=== PATIENT | male | born 2005 | race Caucasian/White ===

== ENCOUNTER 2025-06-02 18:56 | Emergency (ER) | payer OTHER, SELFPAY ==
[2025-06-02 19:54] VITALS: BP 121/64; PULSE 75; RESP 18; TEMP 36.8; O2SAT 99; BMI 25.1
== END 2025-06-02 21:05 | disposition home or self-care (01) ==
LOC: ED 20:57
DX: Z53.21 Procedure and treatment not carried out due to patient leaving prior to being seen by health care provider (principal)

== ENCOUNTER 2025-06-08 23:01 | Outpatient (CLI) | payer OTHER, SELFPAY | END 2025-06-08 23:02 | disposition home or self-care (01) | LOC: AMB 07-03 00:30 | PROVIDERS: Visit Provider Emergency Medicine Emergency Medical Services | DX: S09.90XA Unspecified injury of head, initial encounter (principal); R51.9 Headache, unspecified; W01.0XXA Fall on same level from slipping, tripping and stumbling without subsequent striking against object, initial encounter; Y92.480 Sidewalk as the place of occurrence of the external cause | CPT/HCPCS: A0425; A0429 ==

== ENCOUNTER 2025-06-08 23:20 | Emergency (ER) | payer OTHER, SELFPAY ==
--- NOTE | 2025-06-08 23:28 | CRLHL7_ITS ---
For Patients: As a result of the Century Cures Act, medical imaging exams and procedure reports are released immediately into your electronic medical record. You may view this report before your referring provider. If you have questions, please contact your health care provider. INDICATION: Neck pain. Trauma. TECHNIQUE: Non-contrast axial CT of the cervical spine with coronal and sagittal reconstructions. No comparisons. FINDINGS: The overall stature and alignment of the cervical spine is within normal limits. Prevertebral soft tissues, cervical airway, dens and lateral masses are within normal limits. No evidence of bony fragments narrowing the central canal or visualized neural foramina. IMPRESSION: No radiographic evidence of acute osseous injury. Please note that all CT scans at this facility use dose modulation, iterative reconstruction, and/or weight-based dosing when appropriate to reduce radiation dose to as low as reasonably achievable. Dictated by Dustin Dwyer MD @ 06/08/2025 11:53:27 PM (Electronically Signed)
--- NOTE | 2025-06-08 23:28 | CRLHL7_ITS ---
For Patients: As a result of the Century Cures Act, medical imaging exams and procedure reports are released immediately into your electronic medical record. You may view this report before your referring provider. If you have questions, please contact your health care provider. INDICATION: Headache. Trauma. TECHNIQUE: Non-contrast CT of the head is submitted. No comparisons. FINDINGS: The ventricles, sulci and gyri are of normal size, shape and contour. Midline structures are centrally located. No convincing evidence of intra- or extra-axial fluid collections. IMPRESSION: 1. No radiographic evidence of acute intracranial abnormalities. Please note that all CT scans at this facility use dose modulation, iterative reconstruction, and/or weight-based dosing when appropriate to reduce radiation dose to as low as reasonably achievable. Dictated by Dustin Dwyer MD @ 06/08/2025 11:52:15 PM (Electronically Signed)
--- NOTE | 2025-06-08 23:29 | ED.HEATRA ---
HPI - Head Injury General Chief complaint: Head Injury/Pain Stated complaint: loss of consciousness/head trauma Time Seen by Provider: 06/08/25 23:27 History of Present Illness HPI Narrative: This 20-year-old male comes in by ambulance because of a head and neck injury. I did receive the ambulance report upon arrival. A trauma team activation was initiated because of loss of consciousness. The patient arrives in a cervical collar and is showing no sign of neurologic deficit. He does report a headache at 05/15 and also indicates some neck pain with movement. He does report loss of consciousness as a result of this fall but was able to get up and ambulate normally afterwards. He reports that he was running up a hill and as he stepped onto occurred be fell backwards and hit the back of his head. He does not report any other injury. He is otherwise in good health. Related Data Home Medications ?Medication ?Instructions ?Recorded ?Confirmed No Known Home Medications 06/02/25 06/02/25 Allergies Allergy/AdvReac Type Severity Reaction Status Date / Time No Known Drug Allergies Allergy Verified 06/02/25 19:57 Review of Systems Status of ROS: Reports: 10 or more systems reviewed and unremarkable except as noted in History and below Narrative: Constitutional: No fevers, no weight gain or loss. Eyes: No discharge. No vision changes. HENT: No congestion, no sore throat, no ear pain. Cardiovascular: No chest pain, no palpitations. Respiratory: No shortness of breath, no wheezes, no cough. Gastrointestinal: No abdominal pain, no vomiting, no diarrhea. Genitourinary: No dysuria, no hematuria. Musculoskeletal: Normal range of motion. Skin: No rashes, no pruritis. Neurological: No dizziness, weakness, sensory change, speech change. Endo/Heme/Allergies: No bruising or bleeding. No polydipsia. Pysch: no suicidality, no anxiety, no insomnia. All other systems reviewed and are negative. PFSH PFSH Social History Smoking Status: Never smoker Do you use any of these nicotine containing products: Vaping Products Second hand tobacco smoke exposure: No How often do you have a drink containing alcohol: never AUDIT-C Alcohol total score: 0 Non-prescribed substance use: denies use Exam Narrative: Exam Narrative: Primary Survey: Vital Signs are within normal limits. Airway: Open. Breathing: Easy. Circulation: no obvious bleeding; normal capillary refill. Disability: GCS is 15. Normal pupillary response and motor movements. Secondary Survey: Head: Normocephalic Neck: No midline tenderness When palpating along the spine of the neck. Cervical collar is in place. Chest: Non tender. No external signs of trauma. Abdomen: Non tender. No rebound tenderness. Normal bowel sounds. Pelvis/Genitals: No tenderness to A/P and lateral stress. No blood at the urethral meatus. Extremities: Atraumatic. Back: No midline tenderness. No sign of injury. Primary and Secondary surveys are completed. The patient's GCS is 15. [A decision to transfer this patient was made at ] Const: Vital Signs, click to edit/add: Vital Signs - 24 hr 06/08/25 23:30 Temperature 98.0 F Pulse Rate [Right Pulse Oximeter] 91 Respiratory Rate 18 Blood Pressure [Ri ght Upper Arm] 142/81 H Pulse Oximetry 99 Oxygen Delivery Me thod Room Air Course Vital Signs Vital signs: Initial Vital Signs Temperature 98.0 F 06/08/25 23:30 Temperature Source Temporal Artery Scan 06/08/25 23:30 Pulse Rate 91 06/08/25 23:30 Respiratory Rate 18 06/08/25 23:30 Blood Pressure 142/81 H 06/08/25 23:30 Blood Pressure Mean 101 06/08/25 23:30 Blood Pressure Position Supine 06/08/25 23:30 Pulse Oximetry 99 06/08/25 23:30 Oxygen Delivery Method Room Air 06/08/25 23:30 Vital Signs Temperature 98.0 F 06/08/25 23:30 Pulse Rate 91 06/08/25 23:30 Respiratory Rate 18 06/08/25 23:30 Blood Pressure 142/81 H 06/08/25 23:30 Pulse Oximetry 99 06/08/25 23:30 Oxygen Delivery Method Room Air 06/08/25 23:30 Temperature 98.0 F 06/08/25 23:30 Pulse Rate 91 06/08/25 23:30 Respiratory Rate 18 06/08/25 23:30 Blood Pressure 142/81 H 06/08/25 23:30 Pulse Oximetry 99 06/08/25 23:30 Oxygen Delivery Method Room Air 06/08/25 23:30 MDM - Head Injury MDM Narrative Medical decision making narrative: This patient comes in for evaluation of head injury with loss of consciousness. She is also reporting some neck pain but does not have any other injuries. His fall was from a standing height. CT imaging is obtained of the head and C-spine and these returned with reassuring results. His cervical collar was removed after C-spine clearance. The patient is not showing any sign of other injury or neurologic deficit. He is able to get up and ambulate and is okay to be discharged home. He did receive [facility] prescription for Toradol. With his loss of consciousness this is likely a concussion. The patient has had concussions in the past but nevertheless I did review current understanding of concussion and strategies for recovery from this injury. Imaging Data CT Cervical Spine: Radiologist's impression: No radiographic evidence of acute osseous injury. CT scan - head: Radiologist's impression: No radiographic evidence of acute intracranial abnormalities. Discharge Plan Discharge Clinical Impression: Closed head injury, Concussion with loss of consciousness Patient Disposition: Home, Self-Care Condition: Stable Additional Instructions: Use medication as needed and directed. Increase activity as tolerated. Follow up with MD return if worsening. Prescriptions: No Action No Known Home Medications Follow Up/Referrals: Provider,Not a Local [Primary Care Provider, Family Practice] Stand Alone Forms: [employer] Info Instructions
[2025-06-08 23:30] VITALS: BP 142/81; PULSE 91; RESP 18; TEMP 36.7; O2SAT 99; BMI 24.3
[2025-06-09 00:15] VITALS: BP 135/78; PULSE 89; RESP 18; TEMP 36.7; O2SAT 99
[2025-06-09 00:27] VITALS: BP 135/78; PULSE 89; RESP 18; TEMP 36.7
== END 2025-06-09 00:27 | disposition home or self-care (01) ==
PROVIDERS: Emergency Provider Emergency Medicine Emergency Medical Services
DX: S06.0X1A Concussion with loss of consciousness of 30 minutes or less, initial encounter (principal); W17.81XA Fall down embankment (hill), initial encounter; Y93.02 Activity, running
CPT/HCPCS: 70450; 72125; 99283; 99284